=== PATIENT | male | born 1975 | race African-American/Black ===

== ENCOUNTER 2023-02-15 03:11 | Emergency (ER) | payer BC, SELFPAY ==
[2023-02-15] MEDS ORDERED: Lidocaine 1% w/Epinephrine 1:100K 20 ML VIAL ONE ×2 (03:19→03:20)
== END 2023-02-15 03:51 | disposition home or self-care (01) ==
LOC: ERS 03:11
DX: S31.020A Laceration with foreign body of lower back and pelvis without penetration into retroperitoneum, initial encounter (principal); F17.210 Nicotine dependence, cigarettes, uncomplicated; X95.9XXA Assault by unspecified firearm discharge, initial encounter
CPT/HCPCS: 71045